=== PATIENT | male | born 1985 | race Caucasian/White ===

== ENCOUNTER 2016-10-26 15:01 | Emergency (ER) | payer OTHER ==
[~2016-10-26] VITALS: Ht 177.8 cm; Wt 70.1 kg
[~2016-10-26 15:01] MED LIST: AMOXICILLIN875 MG PO; MOTRIN800 MG PO; MUCUS RELIEF600 M1 PO
[2016-10-26 15:40] LABS: HEMATOCRIT 45.4 % (38.0-50.0); MCH 29.3 PG (29.0-34.0); MCHC 34.1 G/DL (30.0-36.0); MCV 85.8 FL (86-99); MEAN PLAT.VOLUME 10.2 uM^3 (9.0-12.4); PLATELET COUNT 286 K/uL (156-360); RBC DIS.WIDTH-CV 11.7 % (11.8-14.6); RBC DIS.WIDTH-SD 36.6 % (39-53); RED BLOOD COUNT 5.29 M/uL (4.00-5.50); WHITE BLOOD COUNT 4.4 K/uL (4.1-10.2)
[2016-10-26 15:49] LABS: CHLORIDE 105 mEq/L (99-109); POTASSIUM 4.1 mEq/L (3.7-5.4); SODIUM 141 mEq/L (136-147)
[2016-10-26 15:50] LABS: GLUCOSE 88 mg/dL (70-99)
[2016-10-26 15:52] LABS: ANION GAP 10 MEQ/L (2-14)
[2016-10-26 15:54] LABS: GFR ESTIMATE (CALCULATED) > 59 mL/min/
[2016-10-26 15:55] LABS: UREA NITROGEN (BUN) 12 mg/dL (9-23)
[2016-10-26 16:01] LABS: TROP-I INTERPRETATION NEGATIVE; TROPONIN-I < 0.01 ng/mL (0.0-0.30)
[2016-10-26 16:11] LABS: D-DIMER ELISA < 0.15 mg/L FEU (< 0.57)
[2016-10-26 16:48] VITALS: BP 131/94
== END 2016-10-26 16:49 | disposition home or self-care (01) ==
LOC: EME 15:01
PROVIDERS: Physician Assistant
DX: R07.9 Chest pain, unspecified (principal); A69.20 Lyme disease, unspecified
CPT/HCPCS: 71020; 80048; 84484; 85027; 85379; 93005; 94640; 99281; 99283

== ENCOUNTER → 2017-03-09 | Outpatient (CLI) | payer OTHER ==
[~2017-03-09] VITALS: Ht 170.2 cm; Wt 71.2 kg
[~2017-03-09] MED LIST changes: +BUSPAR10 MG PO; +DESYREL100 MG PO; +LEVBID0.375 MG PO; +TRAZODONE HCL50 MG PO; +VITAMIN D31000 UNIT PO
== END | disposition home or self-care (01) ==
LOC: AMB 02-09 13:30
DX: K29.80 Duodenitis without bleeding (principal); R10.13 Epigastric pain; F41.9 Anxiety disorder, unspecified; F32.9 Major depressive disorder, single episode, unspecified; Z86.19 Personal history of other infectious and parasitic diseases; R76.11 Nonspecific reaction to tuberculin skin test without active tuberculosis; R19.4 Change in bowel habit; Z87.891 Personal history of nicotine dependence; K21.9 Gastro-esophageal reflux disease without esophagitis; K50.00 Crohn's disease of small intestine without complications
CPT/HCPCS: 88305; 88342 TC; J3010